=== PATIENT | female | born 1970 | race Two or more races ===

== ENCOUNTER 2021-04-16 13:46 | Emergency (ER) | payer OTHER ==
[~2021-04-16] VITALS: Ht 170.2 cm; Wt 77.1 kg
[2021-04-16] MEDS ORDERED: KETO10TA2 PO (15:50)
[2021-04-16] MEDS ORDERED: ORPHENADRINE C100 MG PO (15:50)
== END 2021-04-16 16:22 | disposition home or self-care (01) ==
LOC: ER 13:46
DX: S01.112A Laceration without foreign body of left eyelid and periocular area, initial encounter (principal); W01.198A Fall on same level from slipping, tripping and stumbling with subsequent striking against other object, initial encounter; Y93.01 Activity, walking, marching and hiking; Y92.828 Other wilderness area as the place of occurrence of the external cause; Y99.8 Other external cause status